=== PATIENT | female | born 1945 | race Caucasian/White ===

== ENCOUNTER 2025-03-02 13:30 | Outpatient (AMB) | payer MEDICARE, SELFPAY ==
--- NOTE | 2025-03-02 13:33 | MHC.AMNUTRGE ---
VS Expanded 03/02/25 13:38 03/09/25 09:30 Height 5 ft 5 in 5 ft 5 in Weight 240 lb 11.916 oz 241 lb BMI 40.1 40.1 Intake Visit Reasons: Obesity Allergies calcium Adverse Reaction (Unknown, Verified 04/29/18 00:00) stones ibuprofen (Advil) Adverse Reaction (Unknown, Verified 04/29/18 00:00) High blood pressure Nutrition Presentation Details: Pt presents for MNT for obesity. Patient reports in general having a good appetite. Patient admits to increased intake of high sugar snacks B: 2 slices of white toast with jelly and with peanut butter, tea or coffee with sugar added bread with jelly Lunch and dinner: noodles with katrin sauce and chicken , water or juice Snacks: 8 peanut butter crackers or crackers with jelly Food frequency Fish 0 2 once a week Fruits 0-1 a day Vegetables 1-2 every day Dairy: Mostly from cheese Physical activity: Daily life activities BS Monitoring Most Recent Diabetes Results: Cholesterol 298 MG/DL 04/25/18 HDL Cholesterol 41 MG/DL 04/25/18 Triglycerides 230 MG/DL 04/25/18 Creatinine, (0.5-1.4) 0.91 MG/DL 04/25/18 BUN, (9-16) 16 MG/DL 04/25/18 Sodium, (135-145) 142 MMOL/L 04/25/18 Potassium, (3.3-5.1) 4.4 MMOL/L 04/25/18 Chloride, (96-108) 107 MMOL/L 04/25/18 Calcium, (8.4-10.2) 9.5 MG/DL 04/25/18 AST, (5-31) 24 U/L 04/25/18 ALT, (0-31) 28 U/L 04/25/18 Total Protein, (6.5-8.0) 6.9 G/DL 04/25/18 Albumin, (3.5-5.0) 4.2 G/DL 04/25/18 SOZ-Xxuhids-Wz.Jeor Equation Height: 5 ft 5 in Weight: 241 lb Resting Metabolic Rate: 1569.34 Calculated Activity Level: Sedentary Calories Needed to Maintain Weight: 1883.21 Diagnosis Nutrition problem #1: overweight/obesity As related to (etiology) #1: diagnosis As evidenced by (sign/symptom) #1: high BMI Assessment & Plan Assessment & Plan (1) Obesity (BMI 30-39.9): Code(s): E66.9 - Obesity, unspecified Category: Medical Plan: current wt: 109 kg (03/17 ) est kcal needs as per MSJ: 7079-9936 est protein needs as per 1 g/kg BW: 110 est fluid needs as per 30 ml/kg BW: 3300 ml /day unless otherwise specified by your doctor Sodium intake: Less than 2300 mg per day, unless otherwise specified by your Dr. Recommended fiber > 12 g /day and gradually increase up to 25-28 g /day or as tolerated Nutrition topics discussed : Reviewed (R), Pt verbalized understanding (V) , not applicable (N/A) R, : Healthy Plate Method Concept: R, : Carbohydrates: food sources of carbohydrates, relationship of carbohydrates to blood glucose, fatty liver GI health. Recommended total amount of carbohydrates per meals and snack. Differences between simple carbohydrates and complex carbohydrates R, : Lean protein foods including vegan , vegetarian sources of protein. Benefits of protein (including but not limited to healing, nutritional value , benefits in weight loss, glucose control R, V, N/A: Fats : Source of fats, benefits of fats. Difference between saturated and unsaturated fats. Saturated fats and its contribution to inflammation R, V, N/A: Fiber: food sources and role of fiber in the diet (including but not limited to its role as a prebiotic, benefits in constipation, role in IBS , role in glucose control and cholesterol level) R, V, N/A: Hydration: role of hydration and prevention of dehydration or over hydration. Foods and water content. R, V, N/A: Vitamins and Minerals in foods and supplements R, V, N/A: Interpreting food labels, including serving size, macronutrients, vitamins, minerals, allergens, ingredient list , % daily value Patient Instructions: Keep hydrated by having low sugar beverages see list of options:water, dilute juices with water Reduce on sugars from pastries, cookies, desserts, beverages Replace one slice of bread with a fruit See meal ideas as reference, following healthy plate method Coding Level of Care Code Nutr Indiv Intake (32219) Diagnoses Obesity (BMI 30-39.9) E66.9 Time Spent (min) 30
[2025-03-02 13:38] VITALS: BMI 40.1
--- OUTSIDE RECORDS SUMMARY | 2025-03-02 15:35 | XMS_ITS ---
Author Name [facility] Organization Unknown Care Team Organization Name Specialty Phone Email Start Date End Da te [facility] 12/10/2024 [facility] 02/28/2022 4
--- OUTSIDE RECORDS SUMMARY | 2025-03-02 15:35 | XMS_ITS | Clinical Summary ---
Author Organization [facility] [address] [place] [address] [address] [place] [address] Phone Care Team Providers Care Hiv Prevention Specialist Name Role Phone Janet De MD Primary Care Provider [phone] Allergies Active Allergy Reactions Criticality Noted Date Comments Naproxen Sodium 01/24/2024 Estrogens Other 10/09/2005 lightheaded Atorvastatin 01/24/2024 Travoprost 01/24/2024 Medications ascorbic acid, vitamin C, 500 mg capsule Take by mouth. Active cholecalcifero l (VITAMIN D-3) 10 mcg (400 unit) capsule Take 2 Caps by mouth daily. Active geriatric multivitamins- minerals 0.5-0.6-7-0.7 mg elixir by j-tube route. Zinc 20 mg cap Active acetaminophen (TYLENOL) 500 mg tablet Take by mouth as needed. - Oral Active B complex tablet Take 1 Tab by mouth 2 times daily. oral Active levothyroxine (SYNTHROID, LEVOTHROID) 112 mcg tablet TAKE 1 TABLET (112 MCG TOTAL) BY MOUTH ONCE DAILY BEFORE BREAKFAST 90 tablet 1 09/19/19 25 Active rosuvastatin (CRESTOR) 10 mg tablet Take 1 tablet (10 mg total) by mouth 1 (one) time each day. 90 tablet 3 12/04/19 25 Active amLODIPine (NORVASC) 10 mg tablet Take 1 tablet (10 mg total) by mouth at bedtime. 90 tablet 1 12/19/19 25 Active carBAMazepine (TEGretol) 200 mg tablet Take 1 tablet (200 mg total) by mouth 2 (two) times a day. 60 each 01/30/20 25 Active valsartan (DIOVAN) 320 mg tablet Take 1 tablet (320 mg total) by mouth at bedtime. 90 tablet 01/30/20 25 Active hydroCHLOROthi azide (HYDRODIURIL) 25 mg tablet Take 1 tablet (25 mg total) by mouth 1 (one) time each day. 90 tablet 1 02/19/20 25 Active hydroCHLOROthi azide (HYDRODIURIL) 25 mg tablet Take 1 tablet (25 mg total) by mouth 1 (one) time each day. 90 each 11/06/19 25 025 Discontinued Active Problems Problem Noted Date Diagnosed Date Shortness of breath 12/03/2024 Assessment & Plan (12/03/2024 2:49 PM EDT): She reports exertional shortness of breath and reduced activity tolerance. She also gets occasional episodes of chest discomfort with emotional distress. Given her significant risk factors of hypertension, hyperlipidemia, obesity and former tobacco use, I will update a nuclear stress test to assess for ischemia. Urine incontinence 07/04/2024 CKD (chronic kidney disease) stage 3, GFR 30-59 ml/min ([facility] V24, [facility] V28) 06/12/2022 Vitamin D deficiency 06/12/2022 PVD (peripheral vascular disease) ([facility] V24) 06/28/2021 Essential hypertension 08/06/2020 Overview (06/29/2024): Assessment & Plan (12/03/2024 2:47 PM EDT): Echocardiogram completed in March 2024 was normal. Blood pressure is much better controlled in the office today at 122/88. She is tolerating her current regimen of valsartan, amlodipine and hydrochlorothiazide. No change to current medical therapy. She has been encouraged to limit sodium in her diet. Assessment & Plan (04/08/2024 11:18 AM EST): In general, she has poor tolerance to medications. She was a started on amlodipine and felt the medication gave her cold sensation to her hands and face. She has stopped medication. She could not tolerate diuretics either and is not very careful with salt intake. She is on high-dose valsartan and I will continue same regimen. I will add low-dose carvedilol to see whether she can tolerate it. At the meantime, we will suggest her to check blood pressure at different times of the day to have better understanding her blood pressure variations through the day. I will arrange echocardiogram to assess whether she has significant LVH caused by hypertension. I suspect she has sleep apnea because her blood pressure tends to be higher in the felt hat steamer after waking up from sleep. Could consider to do sleep study. Hematuria 05/17/2019 Overview (01/24/2024): Microscopic, has history of nephrolithiasis repeat urine analysis pending Wrist fracture 04/09/2019 Overview (01/24/2024): 04/10 right, secondary to a fall Rheumatoid factor positive 10/30/2018 Lipoma of abdominal wall 11/09/2014 Kidney stones 01/13/2012 Fibromyalgia 09/08/2010 Cervical spondylosis without myelopathy 01/02/20 06 Hypothyroidism 10/09/2005 Migraine without aura 10/09/2005 Overview (06/29/2024): Osteoporosis 10/09/2005 Overview (01/24/2024): 08/31 T score spine -1.6; hip -2.0 FRAX 9.7% 01/09 T score spine -1.0; hip -2.3 FRAX 24% 11/11: T-score lumbar (-0.8); hip (-3.0) Primary localized osteoarthrosis, lower leg 09/21 Overview (01/24/2024): gets occasional CS injections Pure hypercholesterolemia 10/09/2005 Assessment & Plan (12/03/2024 2:48 PM EDT): Last lipid panel reviewed, LDL 111. She has tolerated low-dose rosuvastatin thus far. I have asked her to try increasing to 10 mg daily for better control, goal <100. She will contact the office if she develops any myalgias after increasing this dose. If she can tolerate increased dose I have asked her to update a fasting lipid panel in 8 to 12 weeks. Continue with efforts to follow a low fat, heart healthy diet, increase exercise and maintain a healthy weight to maximize risk reduction. Assessment & Plan (04/08/2024 11:18 AM EST): Improved significantly with low-dose statin. Suggest her to take [id number] co-Q10 for muscle ache. Morbid obesity with BMI of 4 0.0-44.9, adult ([facility] V24, [facility] V28) Encounters Date Type Department Care Team Description 01/29/2025 1:30 PM EDT Office Visit Adult Medicine [address] [phone] Kiarra Angeles PA Left facial pain (Primary Dx) 01/21/2025 Results Follow-Up [facility]iology [facility] [address] [facility] [address] [place] [address] Deborah Garber NP 01/19/2025 12:00 PM EDT Ancillary Procedure [facility] [address] [place] [address] Shortness of breath 12/18/2024 10:54 AM EDT - 12/18/2024 11:59 PM EDT Hospital Encounter Radiology Department - [address] [phone] Encounter for screening mammogram for breast cancer Discharge Disposition: Home or Self Care 12/03/2024 2:10 PM EDT Office Visit [facility] Cardiology [facility] [address] [facility] [address] [place] [address] Deborah Garber NP Essential hypertension (Primary Dx); Pure hypercholesterolemia; Shortness of breath from Last 3 Months Immunizations Immunization Administration Dates Next Due H1N1 Inj Preservative Free 08/02/2009 Influenza trivalent, 0.5mL ( Fluad) 65yo and older 01/23/2024 Influenza trivalent, 0.5mL ( Fluzone High-dose) 65yo and older 02/14/2021,02/28/2020,03/15/2016,01/14 Influenza trivalent, with pr eservative (Fluzone; Afluria) 6mo and older 01/13/2012,01/19/2011,03/21/2010,01/23,03/31/2006,04/19/2005 Pneumococcal conjugate 13 va lent (Prevnar 13, PCV13) 2mo and older 03/10/2020 Pneumococcal polysaccharide 23 valent (Pneumovax 23) 2yo and older 09/08/2010 Td Tetanus diptheria (Tdvax) 7yo and older 07/08/2015,10/09/2005 Zoster recombinant (Shingrix ) 19yo and older 04/28/2021,03/31/2021,02/06/2021 Surgical History Surgery Date Site/Laterality Comments TOTAL KNEE ARTHROPLASTY :left HYSTERECTOMY CHOLECYSTECTOMY TONSILLECTOMY COLONOSCOPY 10/23 negative TUBAL LIGATION COLONOSCOPY 2012 normal SCREENING MAMMOGRAM 2023 Bilateral Medical History Medical History Date Comments Hypertension Unspecified hypothyroidism 10/09/2005 Pure hypercholesterolemia 10/09/2005 Migraine without aura, witho ut mention of intractable migraine without mention of status migrainosus 10/09/2005 Primary localized osteoarthr osis, lower leg 10/09/2005 gets occasional CS injection s 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 Cervical spondylosis without myelopathy 6 Fibromyalgia 09/08/2010 Kidney stones 01/13/2012 Morbid obesity with BMI of 4 0.0-44.9, adult ([facility] V24, [facility] V28) 12/02/2018 Wrist fracture 04/09/201904/10 right, sec ondary to a fall Family History Medical History Relation Name Comments Leukemia Brother 1 Heart attack Brother 2 at 50, also floridalma dder cancer, Arthritis Brother 3 RA, AAA Other: aortic aneurysm Brother 4 thora cic, aortic arch Other: sepsis Father Clotting disorder Maternal Grandmother Pancreatic cancer Mother 52 Other: lupus Other granddaughter Clotting disorder Sister 1 Arthritis Sister 2 Prostate cancer Uncle maternal Breast cancer Neg Hx Relation Name Status Comments Brother 1 Brother 2 Brother 3 Brother 4 Father Maternal Grandmother Mother (Age 52) Other Sister 1 Sister 2 Uncle Social History Tobacco Use Types Packs/Day Years Used Date Smoking Tobacco: Former Cigarettes 1 11 0 04/23/1964 - 04/23/1975 Smokeless Tobacco: Never Tobacco Cessation:Counseling Given: Not Answered Alcohol Use Standard Drinks/Week Comments Not Currently 0 (1 standard drink = 0.6 oz pur e alcohol) Housing Instability Answer Date Recorde d Are you worried that in the next 2 months you may not have stable housing? No 11/05/2024 Food Access & Nutrition Answer Date Rec orded Do you have access to a vari ety of food including fruits and vegetables? Yes 11/05/2024 Access to Healthcare Answer Date Record ed Within the last 3 months, ho w many times did you visit the emergency department for your medical care? 0 11/05/2024 Health Literacy Answer Date Recorded How often do you need to hav e someone help you when you read instructions, pamphlets, or other written material from your doctor or pharmacy? Never 11/05/2024 Caregiver: How often do you need to have someone help you when you read instructions, pamphlets, or other written material from your doctor or pharmacy? Not on file 11/05/2024 Financial Risk Answer Date Recorded How hard is it for you to pa y for the very basics like food, housing, medical care, and air conditioning / heating? Not very hard 11/05/2024 Transportation Answer Date Recorded Has the lack of transportati on kept you from meetings, work, or from getting things needed for daily living? No Has the lack of transportati on kept you from medical appointments or from getting medications? No 11/05/2024 Social Isolation Answer Date Recorded How often do you feel lonely or isolated from th ose around you? Never 11/05/2024 Food Risk Answer Date Recorded Within the past 12 months we worried whether our food would run out before we got money to buy more. Never true 11/05/2024 Within the past 12 months th e food we bought just didn't last and we didn't have money to get more. Never true 11/05/2024 Dependent Care Answer Date Recorded Do you need help finding or paying for care for your loved ones. For example, child and adolescent psychiatrist or elderly care for an older adult? No 11/05/2024 Education Answer Date Recorded Do you think completing more education or training, like finishing a GED, going to college, or learning a trade, would be helpful for you? N/A 11/05/2024 Employment and Income Answer Date Recor ded During the last four weeks, have you been actively looking for work? No 11/05/2024 Living Situation Answer Date Recorded What is your living situation? Unrecognized valu e 11/05/2024 Comments No Sex and Gender Information Value Date Recorded Sex Assigned at Female 03/01/2024 8:39 PM EST Legal Sex Female 5:22 AM EST Gender Identity Female 03/01/2024 8:39 PM EST Sexual Orientation Not on file Obstetrics History Para Term AB IAB SAB Ectopic Multiple Livin g Live Births 5 5 5 5 Date Outcome GA Total Labor Labor/2nd/3rd Weight Sex Type Anes PTL Brandi A1 A5 Name Clin Term Term Term Term Term Last Filed Vital Signs Vital Sign Reading Time Taken Comments Blood Pressure 130/71 01/29/2025 1:[address] rage Pulse 77 01/29/2025 1:19 PM EDT Temperature 36.2 C (97.1 F) 01/29/2025 1:18 PM EDT Respiratory Rate 16 01/29/2025 1:18 PM EDT Oxygen Saturation 98% 12/03/2024 1:57 PM EDT Inhaled Oxygen Concentration - - Weight 110 kg (243 lb) 01/29/2025 1:18 PM EDT Height 166.4 cm (5' 5.5 ) 01/29/2025 1:18 PM EDT Body Mass Index 39.82 01/29/2025 1:18 PM EDT Plan of Treatment Upcoming Encounters Date Type Department Care Team (Late st Contact Info) Description 05/26/2025 10:00 AM EST Office Visit Adult Medicine [address] [phone] Janet De MD [address] [place], [place] 08/31/2025 7:45 AM EDT Ancillary Procedure [facility] [address] [place] [address] Health Maintenance Due Date Last Done Comments COVID-19 Vaccine (#1) 1950 RSV Immunization Adult Patients (1 - 1-dose 75+ series) 12/14/2019 Osteoporosis Screening (Bone Density Screening) 11/08/2023 11/07/2021, 01/02/2019 Influenza Vaccine (#1) 2024 , 02/14/2021, 02/28/2020, Additional history exists DTaP,Tdap,and Td Vaccines (3 - Td or Tdap) 07/07/2025 07/08/2015, 10/09/2005 Medicare Annual Wellness Visit 11/05/2025 11/05/2024 Social Influencers of Health Screening 11/05/2025 11/05/2024 Hypertension/CHF/CAD Annual BMP Blood Test 11/24/2025 11/24/2024, 02/22/2024, 07/24/2023 Falls Risk Assessment 01/29/2026 01/29/2025, 025 Cholesterol Screening (Lipid Panel) 11/24/2029 11/24/2024, 02/22/2024, 07/24/2023 Pneumococcal Vaccine: 50+ Years Completed 03/10/2020, 09/08/2010 Zoster Vaccines Completed 04/28/2021, 12/12/2020, 02/06/2021 Depression Screening Completed 01/29/2025 HIB Vaccines Aged Out No longer eligi ble based on patient's age to complete this topic HPV Vaccines Aged Out No longer eligi ble based on patient's age to complete this topic Hepatitis A Vaccines Aged Out No long er eligible based on patient's age to complete this topic Hepatitis B Vaccines Aged Out No long er eligible based on patient's age to complete this topic IPV Vaccines Aged Out No longer eligi ble based on patient's age to complete this topic MMR Vaccines Aged Out No longer eligi ble based on patient's age to complete this topic Meningococcal ACWY Vaccine Aged Out N o longer eligible based on patient's age to complete this topic Meningococcal B Vaccine Aged Out No l onger eligible based on patient's age to complete this topic RSV Immunization Patients Under 20 months Aged Out No longer eligible based on patient's age to complete this topic Varicella Vaccines Aged Out No longer eligible based on patient's age to complete this topic Procedures Procedure Name Priority Date/Time Associated Diagnosis Comments NM LEXISCAN STRESS TEST W/ MYOCARDIAL PERFUSION Routine 01/19/2025 2:41 PM EDT Shortness of breath MG MAMMO DIGITAL SCREENING W BRUCE BILAT Routine 12/18/2024 11:16 AM EDT Encounter for screening mammogram for breast cancer ECG 12-LEAD Routine 12/03/2024 2:03 PM EDT Essential hypertension COMPREHENSIVE METABOLIC PANEL Routine 11/24/2024 10:04 AM EDT Essential hypertension Hypothyroidism due to acquired atrophy of thyroid Stage 3a chronic kidney disease (CMS/HCC V24, [facility] V28) Osteoporosis, unspecified osteoporosis type, unspecified pathological fracture presence Vitamin D deficiency LIPID PANEL WITH REFLEX TO DIRECT LDL Routine 11/24/2024 10:04 AM EDT Essential hypertension Hypothyroidism due to acquired atrophy of thyroid Stage 3a chronic kidney disease (CMS/HCC V24, [facility] V28) Osteoporosis, unspecified osteoporosis type, unspecified pathological fracture presence Vitamin D deficiency DXA BONE DENSITY STUDY 1+ SITS AXIAL SKEL Routine 11/07/2021 1:13 PM EDT Disorder of bone, unspecified Disorder of cartilage, unspecified from Last 3 Months or Most Recently Relevant to Health Maintenance Results * NM LEXISCAN STRESS TEST W/ MYOCARDIAL PERFUSION (01/19/2025 2:41 PM EDT) Exercise/injec tion duration (min) 0 CV PACS STRESS Exercise/injec tion duration (sec) 34 CV PACS STRESS Peak SBP 134 mmHg CV PACS STRESS Peak DBP 72 mmHg CV PACS STRESS Peak HR 99 bpm CV PACS STRESS Baseline HR 73 bpm CV PACS STRESS Baseline SBP 120 mmHg CV PACS STRESS Baseline DBP 59 mmHg CV PACS STRESS Estimated workload 1.0 METS CV PACS STRESS Percent HR 71 % CV PACS STRESS Rate Pressure Product 13,266.0 mmHg*bpm CV PACS STRESS Target HR 119 bpm CV PACS STRESS TID 0.90 CV PACS STRESS Nuc Stress EF 88 % CV PAC S STRESS Nuc Rest EF 87 % CV PACS STRESS BSA 2.24 m2 CV PACS STRESS Anatomical Region Laterality Modality Nuclear Medicine 01/19/2025 1:02 PM EDT 01/19/2025 1:41 PM EDT Narrative 01/20/2025 7:00 PM EDT Raw Images and CineLoop Images: Significant gut uptake noted at stress images than the rest images. Impression: 1. Most likely normal Regadenosone stress test with nuclear imaging. 2. The patient had no chest pain during the test. 3. EKG at baseline was normal sinus rhythm, no ischemic EKG changes at stress. 4. LV Cavity size is normal. 5. No transient ischemic dialatation (TID 0.9) 6, CT scan showed moderate calcification of the RCA and LCx. 7. Raw perfusion imgaes revelaed normal perfusion both at rest and stress. But when attenuation correction is applied, there is small area of hypoperfusion noted in the basal to mid inferoseptal wall at stress which improves with rest but gated SPECT images did not reveal any significant wall motion abnormality. Hence this could be artifactual in nature. If clinical suspicion persist, consider different modality of study for further evaluation. 8. Gated SPECT imaging was performed which demonstrated normal LV wall motion and thickening with a calculated LVEF of 87% at rest and 88% at stress. Stress Findings A pharmacological stress test was performed using regadenoson, 0.4 mg IV over 10-15 seconds, followed by radiopharmacological injection 10 seconds post infusion. Total stress time was 0 min and 34 sec. The patient reached the end of the protocol. The patient's hemodynamic response was adequate for diagnosis. Blood pressure demonstrated a normal response. Heart rate demonstrated a normal response. The patient reported no symptoms during the stress test. ECG 79-year-old female with past medical history of hypertension, hyperlipidemia, obesity, prior smoking who presents today for a pharmacologic nuclear stress test to rule out ischemia in the setting of dyspnea on exertion. Her last dose of amlodipine 10 mg was last night. The ECG shows sinus rhythm. There were no arrhythmias during stress. There is no significant ST abnormalities during stress. There were no arrhythmias during recovery. Nuclear Study Quality Study technique: MPI, SPECT, multi, rest and stress, 1 day and gated. Overall image quality is good. CT attenuation correction was utilized. No radiopharmaceutical dose was extravasated. The time from injection to rest imaging is 50 mins. The time from injection to stress imaging is 40 mins. Stress Function Comments Stress ejection fraction is 88%. Rest Function Comments Resting ejection fraction was 87%. us Deborah Garber LICENSED PLUMBER CV STRESS PROCEDURES Final Resu lt * MG Mammo Digital Screening w Bruce bilat (12/18/2024 11:16 AM EDT) Anatomical Region Laterality Modality Breast Bilateral Mammography 12/18/2024 6:17 PM EDT Impressions 12/18/2024 6:19 PM EDT No mammographic evidence for malignancy. BI-RADS CATEGORY: 1 - NEGATIVE RECOMMENDATION: Screening bilateral mammogram is recommended in 1 year. Mammo Location: [facility], [address] [place] [address], [id number], . -------- FINAL REPORT -------- Dictated By: Zenaida Mahan Dictated Date: 12/18/2024 18:17 ET Assigned Physician: Zenaida Mahan Reviewed and Electronically Signed By: Zenaida Mahan Signed Date: 12/18/2024 18:19 ET Workstation ID: [id number] Transcribed By: Self Edit Transcribed Date: 12/18/2024 18:17 ET Narrative 12/18/2024 6:19 PM EDT Bilateral screening mammogram. CLINICAL: 79 years old, Female, routine annual exam. COMPARISON: Prior mammograms, latest from 2023. TECHNIQUE: Bilateral MLO and CC views were obtained digitally with 2-D C views and 3-D mammogram (digital breast tomosynthesis). Computer-aided detection was utilized in evaluation of this exam (CAD). FINDINGS: There is no evidence of suspicious mass or architectural distortion. No worrisome calcifications are evident. There has been no significant change from prior exam(s). BREAST DENSITY: B - There are scattered areas of fibroglandular density. Procedure Note Zenaida Mahan MD - 12/18/2024 Bilateral screening mammogram. CLINICAL: 79 years old, Female, routine annual exam. COMPARISON: Prior mammograms, latest from 2023. TECHNIQUE: Bilateral MLO and CC views were obtained digitally with 2-D Cviews and 3-D mammogram (digital breast tomosynthesis). Computer-aideddetection was utilized in evaluation of this exam (CAD). FINDINGS: There is no evidence of suspicious mass or architectural distortion. Noworrisome calcifications are evident. There has been no significantchange from prior exam(s). BREAST DENSITY: B - There are scattered areas of fibroglandular density. IMPRESSION: No mammographic evidence for malignancy. BI-RADS CATEGORY: 1 - NEGATIVE RECOMMENDATION: Screening bilateral mammogram is recommended in 1 year. Mammo Location: [facility], [address] [place] [address], [id number], . -------- FINAL REPORT -------- Dictated By: Zenaida Mahan Dictated Date: 12/18/2024 18:17 ET Assigned Physician: Zenaida Mahan Reviewed and Electronically Signed By: Zenaida Mahan Signed Date: 12/18/2024 18:19 ET Workstation ID: [id number] Transcribed By: Self Edit Transcribed Date: 12/18/2024 18:17 ET Janet De MD IMG BI PROCEDURES Final Result * ECG 12 lead (12/03/2024 2:03 PM EDT) Ventricular Rate ECG 75 BPM GEMUSE Atrial Rate 75 BPM GEMUSE P-R Interval 188 ms GEMUSE QRS Duration 86 ms GEMUSE Q-T Interval 368 ms GEMUSE QTc 410 ms GEMUSE P Wave [place] 63 degrees GEMUSE R [place] 9 degrees GEMUSE T [place] 76 degrees GEMUSE ECG Interpretation Normal sinus rhythm Normal ECG When compared with ECG of 08-APR-2024 10:04, No significant change was found Confirmed by TAY TOMLINSON ([id number]) on 12/03/2024 2:45:51 PM GEMUSE 12/03/2024 2:0 3 PM EDT 12/03/2024 2:45 PM EDT us Deborah Garber LICENSED PLUMBER ECG ORDERABLES Final Result KASANDRA * (ABNORMAL) Lipid panel with reflex to direct LDL (11/24/2024 10:04 AM EDT) Cholesterol 196 0 - 200 mg/dL LAB CHEMISTRY METHOD 11/24/2024 2:59 PM EDT [facility] Triglycerides 136 0 - 150 mg/dL LAB CHEMISTRY METHOD 11/24/2024 2:59 PM EDT [facility] HDL 58 >=40 mg/dL LAB CHEMISTRY METHOD 11/24/2024 2:59 PM EDT [facility] LDL Calculated 111(H) 0 - 100 mg/dL LAB CHEMISTRY METHOD 11/24/2024 2:59 PM EDT [facility] VLDL Cholesterol Benjamin 27.2 mg/dL LAB CHEMISTRY METHOD 11/24/2024 2:59 PM EDT [facility] Non HDL Chol. (LDL+VLDL) 138 <145 mg/dL LAB CHEMISTRY METHOD 11/24/2024 2:59 PM EDT [facility] Chol/HDL Ratio 3.4 0.0 - 4.4 LAB CHEMISTRY METHOD 11/24/2024 2:59 PM EDT [facility] Blood Venous blood specimen / Unknown Venipuncture / Unknown 11/24/2024 10:04 AM EDT 11/24/2024 10:04 AM EDT us Kiarra ALONSO LAB BLOOD ORDERABLES Final Re sult [facility] [address] [place] [address], [place] [phone] * (ABNORMAL) Comprehensive metabolic panel (11/24/2024 10:04 AM EDT) Sodium 139 133 - 145 mmol/L LAB CHEMISTRY METHOD 11/24/2024 2:59 PM [facility] Potassium 3.7 3.5 - 5.5 mmol/L LAB CHEMISTRY METHOD 11/24/2024 2:59 PM [facility] Chloride 106 96 - 110 mmol/L LAB CHEMISTRY METHOD 11/24/2024 2:59 PM [facility] CO2 27 21 - 32 mmol/L LAB CHEMISTRY METHOD 11/24/2024 2:59 PM [facility] Anion Gap 6 3 - 11 LAB CHEMISTRY METHOD 11/24/2024 2:59 PM [facility] Glucose 98 70 - 100 mg/dL LAB CHEMISTRY METHOD 11/24/2024 2:59 PM [facility] BUN 27(H) 5 - 25 mg/dL LAB CHEMISTRY METHOD 11/24/2024 2:59 PM [facility] Creatinine 1.35(H) 0.50 - 1.10 mg/dL LAB CHEMISTRY METHOD 11/24/2024 2:59 PM [facility] [facility] eGFR 40(L) >=60 mL/min/1. 73m2 LAB CHEMISTRY METHOD 11/24/2024 2:59 PM [facility] Comment:Calculation based on the Chronic Kidney Disease Epidemiology Collaboration (CKD-EPI) equation refit without adjustment for race. BUN/Creatinine Ratio 20.0 LAB CHEMISTRY METHOD 11/24/2024 2:59 PM [facility] Calcium 9.6 8.5 - 10.5 mg/dL LAB CHEMISTRY METHOD 11/24/2024 2:59 PM [facility] AST (SGOT) 13 10 - 42 unit/L LAB CHEMISTRY METHOD 11/24/2024 2:59 PM [facility] ALT (SGPT) 28 10 - 60 unit/L LAB CHEMISTRY METHOD 11/24/2024 2:59 PM [facility] Alkaline Phosphatase 120 42 - 121 unit/L LAB CHEMISTRY METHOD 11/24/2024 2:59 PM EDT [facility] Total Protein 6.6 6.0 - 8.0 g/dL LAB CHEMISTRY METHOD 11/24/2024 2:59 PM EDT [facility] Albumin 3.6 3.2 - 5.0 g/dL LAB CHEMISTRY METHOD 11/24/2024 2:59 PM EDT [facility] Total Bilirubin 0.7 0.0 - 1.4 mg/dL LAB CHEMISTRY METHOD 11/24/2024 2:59 PM EDT [facility] Blood Venous blood specimen / Unknown Venipuncture / Unknown 11/24/2024 10:04 AM EDT 11/24/2024 10:04 AM EDT us Kiar[facility] ALONSO [facility] BLOOD ORDERABLES Final Re sult [facility] [address] [place] [address], [place] [phone] * DXA BONE DENSITY STUDY 1+ SITS AXIAL SKEL (11/07/2021 1:13 PM EDT) Anatomical Region Laterality Modality Bone Densitometr y 02/14/2021 11:4 9 AM EDT Narrative 11/07/2021 4:33 PM EDT BONE DENSITY SCAN (DEXA): FINDINGS: Lumbar Spine T-score is -0.8. (SD relative to 20-29 y/o adult) Z-score is 1.7. (SD relative to age matched peers) This is considered normal by WHO criteria. Left Hip T-score is -3.0. Z-score is -0.9. This is considered osteoporosis by WHO criteria. Comparison exam(s): As recent as 01/02/2019 as far back as 09/22/2010. Lumbar spine: 2.5% increase in bone mineral density compared with 2018 and 10.3% increase compared with 2010, both statistically significant at the 95% confidence level. Left hip: No statistically significant change in bone mineral density compared with 2019. 10.1% decrease in bone mineral density compared with 2011, statistically significant at the 95% confidence level. IMPRESSION: IMPRESSION: Osteoporosis by WHO criteria. [facility] Department of Internal Medicine recommends using National Osteoporosis Foundation (NOF) guidelines in treatment decisions related to osteoporosis. NOF guidelines suggest considering treatment for postmenopausal women and men aged 50 or older presenting with the following: History of hip or vertebral fracture. T-score = -2.5 (DXA) at the femoral neck, total hip, or spine, after appropriate evaluation to exclude secondary causes. Low bone mass (T-score between -1.0 and -2.5 at the femoral neck or spine) AND a 10-year probability of a hip fracture = 3% OR a 10-year probability of a major osteoporosis-related fracture = 20% based on the [place]-adapted WHO algorithm Please note that all treatment decisions require clinical judgment and consideration of individual patient factors, including patient preferences, co-morbidities, previous drug use, risk factors not captured in the FRAX model (e.g., frailty, falls, vitamin D deficiency, increased bone turnover, interval significant decline in bone density) and possible under- or over-estimation of fracture risk by FRAX. Optional alternative screening schedule based on marycruz Lyles., [facility] May 11, 2011 for patients with osteopenia (based on hip BMD T-score) is as follows: * advanced osteopenia (T scores -2.00 to -2.49), BMD testing every year * moderate osteopenia (T scores -1.50 to -1.99), BMD testing every 5 years mild osteopenia or normal BMD (T scores -1.50 and higher), BMD testing every 15 years Procedure Note Janis Cárdenas MD - 04/11/2022 BONE DENSITY SCAN (DEXA): FINDINGS: Lumbar Spine T-score is -0.8. (SD relative to 20-29 y/o adult) Z-score is 1.7. (SD relative to age matched peers) This is considered normal by WHO criteria. Left Hip T-score is -3.0. Z-score is -0.9. This is considered osteoporosis by WHO criteria. Comparison exam(s): As recent as 01/02/2019 as far back as 09/22/2010. Lumbar spine: 2.5% increase in bone mineral density compared with 2019 and10.3% increase compared with 2011, both statistically significant at the 95% confidencelevel. Left hip: No statistically significant change in bone mineral densitycompared with 2019. 10.1% decrease in bone mineral density compared with 2010, statisticallysignificant at the 95% confidence level. IMPRESSION: IMPRESSION: Osteoporosis by WHO criteria. [facility] Department of Internal Medicine recommendsusing National Osteoporosis Foundation (NOF) guidelines in treatment decisions related toosteoporosis. NOF guidelines suggest considering treatment for postmenopausal women and menaged 50 or older presenting with the following: History of hip or vertebral fracture. T-score = -2.5 (DXA) at the femoral neck, total hip, or spine, afterappropriate evaluation to exclude secondary causes. Low bone mass (T-score between -1.0 and -2.5 at the femoral neck or spine)AND a 10-year probability of a hip fracture = 3% OR a 10-year probability of a majorosteoporosis-related fracture = 20% based on the [place]-adapted WHO algorithm Please note that all treatment decisions require clinical judgment andconsideration of individual patient factors, including patient preferences, co- morbidities,previous drug use, risk factors not captured in the FRAX model (e.g., frailty, falls, vitaminD deficiency, increased bone turnover, interval significant decline in bone density) andpossible under- or over-estimation of fracture risk by FRAX. Optional alternative screening schedule based on marycruz Lyles., NEJJanuary 2011 for patients with osteopenia (based on hip BMD T-score) is as follows: * advanced osteopenia (T scores -2.00 to -2.49), BMD testing every year * moderate osteopenia (T scores -1.50 to -1.99), BMD testing every 5years mild osteopenia or normal BMD (T scores -1.50 and higher), BMD testingevery 15 years Kiarra ALONSO IMJonatan DXA PROCEDURES Final Resu lt from Last 3 Months or Most Recently Relevant to Health Maintenance Insurance [employer] Care Teams Hiv Prevention Specialist Relationship Specialty Start Date End Date Janet De MD [address] [place] [address] PCP - General Internal Medicine 09/25/05
--- OUTSIDE RECORDS SUMMARY | 2025-03-02 15:36 | XMS_ITS | Encounter Summary ---
Author Organization [employer] [facility] Address [address] [place] [address] Care Team Providers Care Paper Machine Supervisor Name Role Phone Unavailable Primary Care Provider Unavailabl e Encounter Details Date Type Department Care Team (Latest Contact Info) Description 12/06/2021 Abstract C CONVERSIONS Dental, Provider, DDS Social History Tobacco Use Types Packs/Day Years Used Date Smoking Tobacco: Never Assessed Comments Unknown Sex and Gender Information Value Date Recorded Sex Assigned at Female 02/20/2022 10:37 AM EDT Legal Sex Female 10:37 AM EDT Gender Identity Female 02/20/2022 10:37 AM EDT Sexual Orientation Straight 02/20/2022 10 :37 AM EDT documented as of this encounter Plan of Treatment Not on file documented as of this encounter Visit Diagnoses Not on filedocumented in this encounter
--- OUTSIDE RECORDS SUMMARY | 2025-03-02 15:36 | XMS_ITS | Encounter Summary ---
Author Organization [facility] Address [address] [place] [address] Care Team Providers Care Business Office Manager Name Role Phone Janet De MD Primary Care Provider [phone] Encounter Details Date Type Department Care Team ([facility] st Contact Info) Description 01/21/2025 Results Follow-Up [facility] - [facility] [address] [facility] [address] [place] [address] Deborah Garber NP [address] [place] [address] [place] [phone] Social History Tobacco Use Types Packs/Day Years Used Date Smoking Tobacco: Former Cigarettes 1 11 0 04/23/1964 - 04/23/1975 Smokeless Tobacco: Never Alcohol Use Standard Drinks/Week Comments Not Currently [...] for your loved ones. For example, child life assistant or elderly care for an older adult? [...] PM EST Sexual Orientation Not on file documented as of this encounter Plan of Treatment Upcoming Encounters Date Type Department Care Team (Late st Contact Info) Description 05/26/2025 10:00 AM EST Office Visit Adult Medicine [address] [address] Janet De MD [address] [place] [address] 08/31/2025 7:45 AM EDT Ancillary Procedure [facility] - [address] [place] [address] documented as of this encounter Visit Diagnoses Not on filedocumented in this encounter Additional Health Concerns Assessment Noted Time PHQ-9 Depression Total Score: 0 11/06/19 11:24 AM EDT A fall risk assessment has been complete d for the patient 11/05/2024 11:22 AM EDT documented as of this encounter Care Teams Business Office Manager Relationship Specialty Start Date End Date Janet De MD [address] [place] [address] PCP - General Internal Medicine 09/25/05 documented as of this encounter
--- OUTSIDE RECORDS SUMMARY | 2025-03-02 15:36 | XMS_ITS | Encounter Summary ---
Author Organization [employer] Address [address] [facility] [address] [place] [address] Care Team Providers Care Procurement Inspector Name Role Phone Unavailable Primary Care Provider Unavailabl e Reason for Visit * Reason Onset Date Comments Oral Surgery appt 11/03/2024 Encounter Details Date Type Department Care Team (Late st Contact Info) Description 11/03/2024 Telephone [facility] [address] [place] [address] Marisol Cruz DDS Oral Surgery appt Social History Tobacco Use Types Packs/Day Years Used Date Smoking Tobacco: Never Assessed Comments Unknown Sex and Gender Information Value Date Recorded Sex Assigned at Female 02/20/2022 10:37 AM EDT Legal Sex Female 10:37 AM EDT Gender Identity Female 02/20/2022 10:37 AM EDT Sexual Orientation Straight 02/20/2022 10 :37 AM EDT documented as of this encounter Miscellaneous Notes * Telephone Encounter - Shavon Davis - 11/03/2024 9:05 AM EDT Patient called in checking in on status of OS appt. Patient is active requested as of 09/25 howeverlimited exam was on 10/29. Patient has been informed that apt has been requested however it is a wait due to provider limited schedule. Patient explained that she is in pain and was informed in last visit that plate could not be fabricated due to condition of gums and bone on jaw line. It was explained to patient that here is no quick way to get a visit seeing his limited schedule and also the list. Patient was informed that message would be sent to office. documented in this encounter Plan of Treatment Not on file documented as of this encounter Visit Diagnoses Not on filedocumented in this encounter
--- OUTSIDE RECORDS SUMMARY | 2025-03-02 15:36 | XMS_ITS | Encounter Summary ---
Author Organization [employer] Address [address] [place] [address] Care Team Providers Care Salvage Worker Name Role Phone Unavailable Primary Care Provider Unavailabl e Encounter Details Date Type Department Care Team (Late st Contact Info) Description 09/25/2024 Telephone [facility] [address] [place] [address] Audrey Alberts Social History Tobacco Use Types Packs/Day Years Used Date Smoking Tobacco: Never Assessed Comments Unknown Sex and Gender Information Value Date Recorded Sex Assigned at Female 02/20/2022 10:37 AM EDT Legal Sex Female 10:37 AM EDT Gender Identity Female 02/20/2022 10:37 AM EDT Sexual Orientation Straight 02/20/2022 10 :37 AM EDT documented as of this encounter Miscellaneous Notes * Telephone Encounter - Surya Brady - 09/25/2024 8:39 AM EDT PT HAS [employer] COVERAGE WE ACCEPT IT BUT CANNOT POST INSURANCE FOR 10AM APPT TODAY documented in this encounter Plan of Treatment Not on file documented as of this encounter Visit Diagnoses Not on filedocumented in this encounter
--- OUTSIDE RECORDS SUMMARY | 2025-03-02 15:36 | XMS_ITS | Encounter Summary ---
Author Organization [employer] Address [address] [facility] [address] [place] [address] Care Team Providers Care Information Systems Manager Name Role Phone Unavailable Primary Care Provider Unavailabl e Reason for Visit * Reason Onset Date Comments Dr. Simental Referral 12/24/2024 Encounter Details Date Type Department Care Team (Late st Contact Info) Description 12/24/2024 Telephone [facility] [address] [place] [address] Eryn Simental DDS [address] [place] [address] Dr. Simental Referral Social History Tobacco Use Types Packs/Day Years [...] * Telephone Encounter - Shavon Davis - 12/24/2024 10:20 AM EDT Patient states she needs a referral sent to a different oral surgeon per patient she explains she was told that office no longer accepts cari insurance. (Per office or per provider) She is looking tosee [facility] in [place]. Their fax number is [phone]. She was last seen inJuly with Dr. Anthony GARCIA documented in this encounter Plan of Treatment Not on file documented as of this encounter Visit Diagnoses Not on filedocumented in this encounter
--- OUTSIDE RECORDS SUMMARY | 2025-03-02 15:36 | XMS_ITS | Clinical Summary ---
Author Organization [employer] Address [address] [facility] [address] [place] [address] Care Team Providers Care Open Die Inspector Name Role Phone Unavailable Primary Care Provider Unavailabl e Allergies Active Allergy Reactions Criticality Noted Date Comments Atorvastatin 05/04/2021 Estrogens Other 10/09/2005 lightheaded Naproxen 05/04/2021 Travoprost 05/04/2021 Medications amLODIPine (Norvasc) 10 MG tablet Take 10 mg by mouth at bedtime. Active acetaminophen (Tylenol) 500 MG tablet Take by mouth as needed. - Oral Active Ascorbic Acid 500 MG capsule Take by mouth. Active amLODIPine (Norvasc) 5 MG tablet Take 5 mg by mouth at bedtime. 4 Active B Complex-Mineral s (geriatric multivitamins-m inerals) liquid by Enteral route. Active carvedilol (Coreg) 3.125 MG tablet Take 3.125 mg by mouth with breakfast and with evening meal. 4 Active losartan (Cozaar) 50 MG tablet Take 50 mg by mouth Once per day. Active Active Problems Problem Noted Date Diagnosed Date Essential hypertension 08/06/2020 Hematuria 05/17/2019 Overview (09/25/2024): Microscopic, has history of nephrolithiasis repeat urine analysis pending Kidney stones 01/13/2012 Fibromyalgia 09/08/2010 Encounters Date Type Department Care Team Description 12/24/[address] [facility] [address] [place], [place] [id number] Eryn Simental DDS Dr. Attardi Referral from Last 3 Months Social History Tobacco Use Types Packs/Day Years Used Date Smoking Tobacco: Never Assessed Comments Unknown Sex and Gender Information Value Date Recorded Sex Assigned at Female 02/20/2022 10:37 AM EDT Legal Sex Female 10:37 AM EDT Gender Identity Female 02/20/2022 10:37 AM EDT Sexual Orientation Straight 02/20/2022 10 :37 AM EDT Last Filed Vital Signs Vital Sign Reading Time Taken Comments Blood Pressure 140/90 09/25/2024 10:04 AM EDT Pulse - - Temperature - - Respiratory Rate - - Oxygen Saturation - - Inhaled Oxygen Concentration - - Weight - - Height - - Body Mass Index - - Plan of Treatment Health Maintenance Due Date Last Done Comments Dental Prophylaxis 1944 Dental X-Ray: Bitewings 1944 Depression Screening 1944 Lipid Panel 1944 SDOH Screening 1944 Alcohol/Substance Use Screening 1956 Tobacco Screening 1956 DTaP/Tdap/Td Vaccines (1 - Tdap) 07/09/2015 07/08/2015, 10/09/2005 RSV Patients and Patients Aged 60 years or older (1 - 1-dose 75+ series) 12/14/2019 Dental Oral Exam 06/09/2022 12/06/2021, 08/25/2020 Dental X-Ray: Full Mouth 08/27/2023 08/25/2020 COVID-19 Vaccine ( season) 2024 Influenza Vaccine (#1) 2024 , 02/14/2021, 02/28/2020, Additional history exists Pneumococcal Vaccine: 50+ Years Completed 03/10/2020, 09/08/2010 Zoster Vaccines Completed 04/28/2021, 12/0 12/2020, 02/06/2021 HIB Vaccines Aged Out No longer eligi [...] patient's age to complete this topic Meningococcal Vaccine Aged Out No marybeth norman eligible based on patient's age to complete this topic RSV under 20 months Aged Out No longe r eligible based on patient's age to complete this topic Rotavirus Vaccines Aged Out No longer eligible based on patient's age to complete this topic Procedures Procedure Name Priority Date/Time Associated Diagnosis Comments PERIODIC ORAL EVALUATION - ESTABLISHED PATIENT Routine 12/06/2021 12:00 AM EDT PANORAMIC RADIOGRAPHIC IMAGE Routine 08/25/2020 12:00 AM EDT from Last 3 Months or Most Recently Relevant to Health Maintenance Insurance DENTAL - [facility] PL[facility]
[2025-03-09 09:30] VITALS: BMI 40.1
== END 2025-03-02 14:40 | disposition home or self-care (01) ==
LOC: HO.ENCR 13:30
PROVIDERS: PCP Internal Medicine; Visit Provider Dietitian, Registered
DX: E66.9 Obesity, unspecified (principal)

== ENCOUNTER → 2025-03-02 13:30 | Outpatient (BNVA) | payer MEDICARE, SELFPAY | PROVIDERS: PCP Internal Medicine; Visit Provider Dietitian, Registered | DX: E66.9 Obesity, unspecified (principal) | CPT/HCPCS: 97802 ==